=== PATIENT | female | born 1940 | race Caucasian/White ===

== ENCOUNTER → 2017-10-17 | Outpatient (CLI) | payer OTHER ==
[~2017-10-17] MED LIST: AMLO5; ASPI81CH PO; ATOR20 PO; ATOR80 PO; CLOP75 PO; ISOMON30 PO; LEVSOD100 PO; LEVSOD75 PO; LORA.5 PO; METO25ER PO; Nitrostat0.4 MG SL; Omeprazole20 M1 PO; PANT20 PO; PRAV20 PO; Prinivil10 MG PO; Vitamin D400 UNI1 PO
== END ==
LOC: LAB EV 11:10
DX: N39.0 Urinary tract infection, site not specified (principal)
CPT/HCPCS: 87077; 87086; 87186

== ENCOUNTER → 2017-12-01 | Outpatient (CLI) | payer OTHER | END | disposition home or self-care (01) | LOC: LAB 07:54 → LAB SHORT 07:54 | DX: L98.9 Disorder of the skin and subcutaneous tissue, unspecified (principal) | CPT/HCPCS: 88305 ==

== ENCOUNTER 2017-12-12 23:24 | Emergency (ER) | payer OTHER ==
[~2017-12-12] VITALS: Ht 162.6 cm; Wt 68.0 kg
[~2017-12-12 23:24] MED LIST changes: -AMLO5
[2018-04-21] MEDS ORDERED: AMLO5 (14:28)
== END 2017-12-13 01:18 | disposition home or self-care (01) ==
LOC: ER 23:24
DX: I10 Essential (primary) hypertension (principal); Z88.2 Allergy status to sulfonamides; Z88.8 Allergy status to other drugs, medicaments and biological substances; Z88.0 Allergy status to penicillin; Z79.899 Other long term (current) drug therapy; Z79.82 Long term (current) use of aspirin; Z87.891 Personal history of nicotine dependence
CPT/HCPCS: 93225; 93226; 99282

== ENCOUNTER → 2018-02-02 | Outpatient (CLI) | payer OTHER | END | disposition home or self-care (01) | LOC: PLD 07:42 → LAB SHORT 07:42 | DX: L30.9 Dermatitis, unspecified (principal) | CPT/HCPCS: 88305; 88313 ==

== ENCOUNTER → 2018-02-15 | Outpatient (CLI) | payer OTHER | END | disposition home or self-care (01) | LOC: LAB SHORT 07:34 → PLD 07:34 | DX: C44.729 Squamous cell carcinoma of skin of left lower limb, including hip (principal) | CPT/HCPCS: 88305 ==

== ENCOUNTER → 2018-02-28 | Outpatient (CLI) | payer OTHER | END | disposition home or self-care (01) | LOC: PLD 13:58 → LAB SHORT 13:58 | DX: C44.722 Squamous cell carcinoma of skin of right lower limb, including hip (principal) | CPT/HCPCS: 88305 ==

== ENCOUNTER → 2018-07-28 | Outpatient (CLI) | payer OTHER ==
[~2018-07-28] MED LIST changes: +AMLO5
[2018-08-01 13:11] LABS: HPV 16 Negative (Negative); HPV 18 Negative (Negative); HPV OTHER HR TYPES Negative (Negative)
== END ==
LOC: LAB SHORT 11:10 → LAB 11:10
PROVIDERS: Obstetrics & Gynecology Gynecology
DX: Z91.89 Other specified personal risk factors, not elsewhere classified (principal)
CPT/HCPCS: 87624; G0123

== ENCOUNTER 2019-03-09 21:20 | Emergency (ER) | payer OTHER ==
[~2019-03-09] VITALS: Ht 162.6 cm; Wt 72.6 kg
[~2019-03-09 21:20] MED LIST changes: -AMLO5; +AMLO5 PO; +ANTACID 1000-21 EACH PO; +FAMO10 PO; +RANO500T PO; +THERA1 EACH PO
[2019-03-09] MEDS ORDERED: Vibramycin100 MG PO (22:46)
== END 2019-03-09 23:05 | disposition home or self-care (01) ==
LOC: ER 21:20
DX: S01.551A Open bite of lip, initial encounter (principal); I10 Essential (primary) hypertension; Z88.0 Allergy status to penicillin; Z88.2 Allergy status to sulfonamides; Z88.6 Allergy status to analgesic agent; Z88.8 Allergy status to other drugs, medicaments and biological substances; Z79.82 Long term (current) use of aspirin; Z79.899 Other long term (current) drug therapy; Z87.891 Personal history of nicotine dependence; W54.0XXA Bitten by dog, initial encounter
CPT/HCPCS: 90471; 90714; 99283-25

== ENCOUNTER 2019-03-17 09:19 | Emergency (ER) | payer OTHER ==
[~2019-03-17] VITALS: Ht 162.6 cm; Wt 72.6 kg
[~2019-03-17 09:19] MED LIST changes: +Vibramycin100 MG PO
== END 2019-03-17 14:04 | disposition home or self-care (01) ==
LOC: ER 09:19
DX: M79.89 Other specified soft tissue disorders (principal); R79.1 Abnormal coagulation profile; Z88.2 Allergy status to sulfonamides; Z88.8 Allergy status to other drugs, medicaments and biological substances; Z88.5 Allergy status to narcotic agent; Z88.0 Allergy status to penicillin; Z79.899 Other long term (current) drug therapy; Z79.82 Long term (current) use of aspirin; I25.10 Atherosclerotic heart disease of native coronary artery without angina pectoris; E03.9 Hypothyroidism, unspecified; I10 Essential (primary) hypertension; Z87.891 Personal history of nicotine dependence
CPT/HCPCS: 36415; 70486; 73610; 85379; 99284-25

== ENCOUNTER 2019-05-30 00:50 | Emergency (ER) | payer OTHER ==
[~2019-05-30] VITALS: Ht 162.6 cm; Wt 70.8 kg
[2019-05-30 01:16] LABS: BASOPHILS ABSOLUTE AUTO 0.02 K/mm3 (0.00-0.23); BASOPHILS PERCENT AUTO 0 % (0-2); EOSINOPHILS ABSOLUTE AUTO 0.06 K/mm3 (0.00-0.68); EOSINOPHILS PERCENT AUTO 1 % (0-6); Hematocrit 34.2 % (33.0-51.0); Hemoglobin 11.5 g/dL (11.5-16.0); IMMATURE GRAN ABSOLUTE AUTO 0.04 K/mm3 (0.00-0.10); IMMATURE GRAN PERCENT AUTO 1 % (0-1); LYMPHOCYTES ABSOLUTE AUTO 0.38 K/mm3 (0.84-5.20); LYMPHOCYTES PERCENT AUTO 5 % (21-46); MONOCYTES PERCENT AUTO 6 % (4-13); Mean Corpuscular HGB Conc 33.6 g/dL (31.5-36.5); Mean Corpuscular Volume 89 fL (80-100); Mean Platelet Volume 9.3 fL (9.1-12.4); NEUTROPHILS PERCENT AUTO 88 % (41-73); Platelet Count 128 K/mm3 (150-400); RDW Standard Deviation 45.1 fL (35.1-46.3); Red Blood Cell Count 3.83 M/mm3 (3.80-5.20)
[2019-05-30 01:36] LABS: Alanine Aminotransfer (ALT/SGP 25 U/L (12-78); Albumin, Blood 4.1 g/dL (3.4-5.0); Albumin/Globulin Ratio 1.4 (0.8-1.8); Alk Phos 101 U/L (50-136); Anion Gap 10 mmol/L (6-16); Aspartate Aminotrans (AST/SGOT 18 U/L (12-37); Bilirubin, Total 0.9 mg/dL (0.1-1.0); Blood Urea Nitrogen 18 mg/dL (8-24); Bun/Creatinine Ratio 27.4 (12.0-20.0); CO2, Blood 24 mmol/L (21-32); Calcium, Blood 8.6 mg/dL (8.5-10.1); Chloride, Blood 103 mmol/L (98-108); Creatinine, Blood 0.66 mg/dL (0.40-1.00); Globulin, Blood 2.9 g/dL (2.2-4.0); Glomerular Filtration Rate >60 (60-); Glucose, Blood 156 mg/dL (70-99); Potassium, Blood 3.6 mmol/L (3.5-5.5); Sodium, Blood 137 mmol/L (136-145); Troponin I <0.015 ng/mL (0.000-0.040)
== END 2019-05-30 02:32 | disposition home or self-care (01) ==
LOC: ER 00:50
PROVIDERS: Emergency Medicine
DX: R11.2 Nausea with vomiting, unspecified (principal); E03.9 Hypothyroidism, unspecified; E78.5 Hyperlipidemia, unspecified; I10 Essential (primary) hypertension; I25.2 Old myocardial infarction; I25.10 Atherosclerotic heart disease of native coronary artery without angina pectoris; I73.00 Raynaud's syndrome without gangrene; Z87.891 Personal history of nicotine dependence; Z88.0 Allergy status to penicillin; Z88.2 Allergy status to sulfonamides; Z88.8 Allergy status to other drugs, medicaments and biological substances; Z88.5 Allergy status to narcotic agent; Z79.82 Long term (current) use of aspirin; Z79.899 Other long term (current) drug therapy
CPT/HCPCS: 80053; 84484; 85025; 93005; 93010; 99284-25; A9270-GY

== ENCOUNTER → 2019-07-31 | Outpatient (CLI) | payer OTHER ==
[2019-08-01 14:07] LABS: HPV 16 Negative (Negative); HPV 18 Negative (Negative); HPV OTHER HR TYPES Negative (Negative)
== END | disposition home or self-care (01) ==
LOC: LAB SHORT 10:15 → LAB 10:15
PROVIDERS: Obstetrics & Gynecology Gynecology
DX: Z91.89 Other specified personal risk factors, not elsewhere classified (principal)
CPT/HCPCS: 87624; G0123

== ENCOUNTER → 2019-08-21 | Outpatient (CLI) | payer OTHER | END | disposition home or self-care (01) | LOC: LAB EV 11:30 → LAB SHORT 11:30 | DX: N39.0 Urinary tract infection, site not specified (principal) | CPT/HCPCS: 87077; 87086; 87186 ==

== ENCOUNTER 2019-09-28 08:28 | Day surgery (SDC) | payer OTHER ==
[~2019-09-28] VITALS: Ht 162.6 cm; Wt 72.1 kg
[~2019-09-28 08:28] MED LIST changes: +Aspirin EC81 MG PO; +Daily Multiple1 EACH PO; +TUMS500 MG PO; +[UNRECOGNIZED DRUG - OTHER] PO
--- NOTE | 2019-09-28 10:16 | NUR ---
09/28/19 1016 Osiris Lindsey O2 WITH POM MASK AT 10L
== END 2019-09-28 10:50 | disposition home or self-care (01) ==
LOC: ORSCSDS 08:28
PROVIDERS: Internal Medicine Gastroenterology
PROC: 0DB58ZX Excision of Esophagus, Via Natural or Artificial Opening Endoscopic, Diagnostic (ICD-10-PCS; principal; 2019-09-28 09:45)
PROC: 0D757ZZ Dilation of Esophagus, Via Natural or Artificial Opening (ICD-10-PCS; principal; 2019-09-28 09:45)
PROC: 0DB68ZX Excision of Stomach, Via Natural or Artificial Opening Endoscopic, Diagnostic (ICD-10-PCS; principal; 2019-09-28 09:45)
DX: R13.10 Dysphagia, unspecified (principal); K29.70 Gastritis, unspecified, without bleeding; K21.9 Gastro-esophageal reflux disease without esophagitis; K44.9 Diaphragmatic hernia without obstruction or gangrene; K22.2 Esophageal obstruction; I10 Essential (primary) hypertension; G47.33 Obstructive sleep apnea (adult) (pediatric); E03.9 Hypothyroidism, unspecified; I25.10 Atherosclerotic heart disease of native coronary artery without angina pectoris; Z79.899 Other long term (current) drug therapy; Z79.82 Long term (current) use of aspirin
CPT/HCPCS: 88305; 88342; J2704; J7120

== ENCOUNTER → 2020-03-14 | Outpatient (CLI) | payer OTHER | END | disposition home or self-care (01) | LOC: LAB EV 12:13 → LAB SHORT 12:13 | DX: R30.9 Painful micturition, unspecified (principal) | CPT/HCPCS: 87077; 87086; 87186 ==

== ENCOUNTER → 2020-06-09 | Outpatient (CLI) | payer OTHER | END | disposition home or self-care (01) | LOC: LAB EV 12:14 → LAB SHORT 12:14 | DX: R30.9 Painful micturition, unspecified (principal) | CPT/HCPCS: 87086 ==

== ENCOUNTER → 2021-03-31 | Outpatient (CLI) | payer OTHER ==
[~2021-03-31] MED LIST changes: +Estrace Vagin42.5 GM PV; +NITR.4SL SL
== END | disposition home or self-care (01) ==
LOC: LAB SHORT 18:07
DX: N39.0 Urinary tract infection, site not specified (principal)
CPT/HCPCS: 87086

== ENCOUNTER 2021-04-20 06:27 | Day surgery (SDC) | payer OTHER ==
[~2021-04-20] VITALS: Ht 162.6 cm; Wt 72.0 kg
--- NOTE | 2021-04-20 11:34 | NUR ---
TR BAND FULLY DEFLATED, REMAINS ON WRIST WITH ARM BOARD. SITE SOFT, NON TENDER, BRUISING NOTED. NO ACTIVE BLEEDING. PT DENIES PAIN. AT BEDSIDE. DISCHARGE INSTRUCTIONS REVIEWED, VERBAL UNDERSTANDING STATED. PAPERWORK PROVIDED IN FOLDER. VSS.
--- NOTE | 2021-04-20 12:23 | NUR ---
PT PREVIOUSLY UP TO GET DRESSED WITH ASSISTANCE FROM . AFTER TR BAND REMOVAL HEMATOMA BEGAN TO FORM, 5 MINUTES MANUAL PRESSURE HELD WITH NO REDUCTION, TR BAND PLACED BACK ONTO WRIST WITH 15 CC AIR IN. VSS. CALL LIGHT IN REACH.
--- NOTE | 2021-04-20 12:56 | NUR ---
DR CHAVEZ IN TO ASSESS PATIENT. WILL START RELEASING AIR FROM BAND IN AN HOUR AND REASSESS R RADIAL SITE.
--- NOTE | 2021-04-20 14:38 | NUR ---
TR BAND REMOVED, RED CLOTH DOT DRESSING APPLIED, LIGHT PRESSURE DRESSING IN PLACE. ARM BOARD AND SLING ON RIGHT ARM. NO HEMATOMA NOTED, LOTS OF BRUISING NOTED TO RFA AND WRIST. PT EDUCATED ON HOW TO MANAGE RIGHT WRIST IF BLEEDING/OOZING, OR SWELLING SHOULD OCCUR. PT VERBALIZED UNDERSTANDING. IV REMOVED FROM LEFT ARM WITH CATHETER INTACT, PRESSURE DRESSING APPLIED. PAPERWORK PROVIDED IN FOLDER. ALL PERSONAL BELONGINGS SENT HOME WITH PT. TAKEN OUT TO PRIVATE VEHICLE VIA W/C. NADN AT TIME OF DISCHARGE.
== END 2021-04-20 16:00 | disposition home or self-care (01) ==
LOC: MHTC 06:27
DX: I25.110 Atherosclerotic heart disease of native coronary artery with unstable angina pectoris (principal); I11.0 Hypertensive heart disease with heart failure; I50.9 Heart failure, unspecified; E78.5 Hyperlipidemia, unspecified; E03.9 Hypothyroidism, unspecified; K21.9 Gastro-esophageal reflux disease without esophagitis; I25.2 Old myocardial infarction; M19.90 Unspecified osteoarthritis, unspecified site; I87.2 Venous insufficiency (chronic) (peripheral); I47.1 Supraventricular tachycardia; K22.2 Esophageal obstruction; I73.9 Peripheral vascular disease, unspecified; Z87.891 Personal history of nicotine dependence; Z95.5 Presence of coronary angioplasty implant and graft; Z88.6 Allergy status to analgesic agent; Z88.5 Allergy status to narcotic agent; Z88.0 Allergy status to penicillin; Z88.2 Allergy status to sulfonamides; Z88.8 Allergy status to other drugs, medicaments and biological substances; Z79.02 Long term (current) use of antithrombotics/antiplatelets; Z79.82 Long term (current) use of aspirin
CPT/HCPCS: 85347; 93454; 93571; 99152; 99153; A9270; C1769; C1887; C1894; J2060; J7030; J7050; Q9967

== ENCOUNTER → 2021-06-10 | Outpatient (CLI) | payer OTHER | LOC: LAB 12:15 → LAB SHORT 12:15 | DX: N39.0 Urinary tract infection, site not specified (principal) | CPT/HCPCS: 87086 ==

== ENCOUNTER → 2021-08-04 | Outpatient (CLI) | payer OTHER | LOC: LAB SHORT 07:39 → LAB 07:39 | DX: L98.9 Disorder of the skin and subcutaneous tissue, unspecified (principal); L30.8 Other specified dermatitis | CPT/HCPCS: 88305; 88312 ==

== ENCOUNTER 2021-11-20 09:48 | Emergency (ER) | payer OTHER ==
[~2021-11-20] VITALS: Ht 162.6 cm; Wt 70.3 kg
[2021-11-20 10:27] LABS: BASOPHILS ABSOLUTE AUTO 0.05 K/mm3 (0.00-0.23); BASOPHILS PERCENT AUTO 1 % (0-2); EOSINOPHILS ABSOLUTE AUTO 0.61 K/mm3 (0.00-0.68); EOSINOPHILS PERCENT AUTO 9 % (0-6); Hemoglobin 12.1 g/dL (11.5-16.0); IMMATURE GRAN ABSOLUTE AUTO 0.12 K/mm3 (0.00-0.10); IMMATURE GRAN PERCENT AUTO 2 % (0-1); LYMPHOCYTES ABSOLUTE AUTO 1.19 K/mm3 (0.84-5.20); LYMPHOCYTES PERCENT AUTO 18 % (21-46); MONOCYTES ABSOLUTE AUTO 0.69 K/mm3 (0.16-1.47); MONOCYTES PERCENT AUTO 10 % (4-13); Mean Corpuscular HGB 29.5 pg (26.0-34.0); Mean Corpuscular HGB Conc 32.7 g/dL (31.5-36.5); Mean Corpuscular Volume 90 fL (80-100); NEUTROPHILS ABSOLUTE AUTO 4.14 K/mm3 (1.96-9.15); NEUTROPHILS PERCENT AUTO 61 % (41-73); Platelet Count 166 K/mm3 (150-400); RDW Standard Deviation 46.4 fL (35.1-46.3)
[2021-11-20 10:57] LABS: Alanine Aminotransfer (ALT/SGP 23 U/L (12-78); Albumin, Blood 3.8 g/dL (3.4-5.0); Albumin/Globulin Ratio 1.1 (0.8-1.8); Alk Phos 109 U/L (50-136); Anion Gap 7 mmol/L (6-16); Aspartate Aminotrans (AST/SGOT 19 U/L (12-37); Bilirubin, Total 0.5 mg/dL (0.1-1.0); Blood Urea Nitrogen 15 mg/dL (8-24); CO2, Blood 26 mmol/L (21-32); Calcium, Blood 9.1 mg/dL (8.5-10.1); Chloride, Blood 106 mmol/L (98-108); Creatinine, Blood 0.68 mg/dL (0.40-1.00); Globulin, Blood 3.6 g/dL (2.2-4.0); Glomerular Filtration Rate >60 (60-); Glucose, Blood 118 mg/dL (70-99); Sodium, Blood 139 mmol/L (136-145); Total Protein, Blood 7.4 g/dL (6.4-8.2)
== END 2021-11-20 12:47 | disposition home or self-care (01) ==
LOC: ER 09:48
PROVIDERS: Physician Assistant
DX: G44.309 Post-traumatic headache, unspecified, not intractable (principal); F07.81 Postconcussional syndrome; R06.00 Dyspnea, unspecified; E03.9 Hypothyroidism, unspecified; E78.5 Hyperlipidemia, unspecified; I25.2 Old myocardial infarction; I10 Essential (primary) hypertension; Z79.899 Other long term (current) drug therapy; Z88.0 Allergy status to penicillin; Z88.2 Allergy status to sulfonamides; Z87.891 Personal history of nicotine dependence
CPT/HCPCS: 36415; 70450; 71046; 80053; 84484; 85025; 93005; 93010; 99284-25

== ENCOUNTER → 2022-09-06 | Outpatient (CLI) | payer OTHER | LOC: LAB 09:19 → LAB SHORT 09:19 | DX: N39.0 Urinary tract infection, site not specified (principal) | CPT/HCPCS: 87077; 87086; 87186 ==

== ENCOUNTER 2022-10-14 21:09 | Emergency (ER) | payer OTHER ==
[~2022-10-14] VITALS: Ht 162.6 cm; Wt 70.3 kg
[2022-10-14 22:07] LABS: BASOPHILS ABSOLUTE AUTO 0.07 K/mm3 (0.00-0.23); BASOPHILS PERCENT AUTO 1 % (0-2); EOSINOPHILS ABSOLUTE AUTO 0.19 K/mm3 (0.00-0.68); EOSINOPHILS PERCENT AUTO 2 % (0-6); Hematocrit 35.7 % (33.0-51.0); Hemoglobin 12.2 g/dL (11.5-16.0); IMMATURE GRAN ABSOLUTE AUTO 0.12 K/mm3 (0.00-0.10); IMMATURE GRAN PERCENT AUTO 2 % (0-1); LYMPHOCYTES ABSOLUTE AUTO 1.43 K/mm3 (0.84-5.20); LYMPHOCYTES PERCENT AUTO 18 % (21-46); MONOCYTES ABSOLUTE AUTO 0.68 K/mm3 (0.16-1.47); MONOCYTES PERCENT AUTO 9 % (4-13); Mean Corpuscular HGB 30.5 pg (26.0-34.0); Mean Corpuscular HGB Conc 34.2 g/dL (31.5-36.5); Mean Corpuscular Volume 89 fL (80-100); Mean Platelet Volume 9.5 fL (9.1-12.4); NEUTROPHILS ABSOLUTE AUTO 5.49 K/mm3 (1.96-9.15); NEUTROPHILS PERCENT AUTO 69 % (41-73); Platelet Count 177 K/mm3 (150-400); RDW Coefficient Variation 14.1 % (11.7-14.2); RDW Standard Deviation 45.4 fL (35.1-46.3); White Blood Cell Count 7.98 K/mm3 (4.00-11.30)
[2022-10-14 22:28] LABS: Albumin, Blood 4.2 g/dL (3.4-5.0); Albumin/Globulin Ratio 1.3 (0.8-1.8); Bilirubin, Total 0.4 mg/dL (0.1-1.0); Bun/Creatinine Ratio 28.2 (12.0-20.0); Calcium, Blood 9.4 mg/dL (8.5-10.1); Creatinine, Blood 0.75 mg/dL (0.40-1.00); Globulin, Blood 3.3 g/dL (2.2-4.0); Potassium, Blood 3.9 mmol/L (3.5-5.5); Total Protein, Blood 7.5 g/dL (6.4-8.2)
== END 2022-10-15 01:20 | disposition home or self-care (01) ==
LOC: ER 21:09
PROVIDERS: Physician Assistant
DX: I10 Essential (primary) hypertension (principal); I25.2 Old myocardial infarction; E03.9 Hypothyroidism, unspecified; I25.10 Atherosclerotic heart disease of native coronary artery without angina pectoris; Z79.890 Hormone replacement therapy; Z79.899 Other long term (current) drug therapy; Z79.82 Long term (current) use of aspirin; Z88.2 Allergy status to sulfonamides; Z88.6 Allergy status to analgesic agent; Z88.5 Allergy status to narcotic agent; Z88.0 Allergy status to penicillin; Z88.8 Allergy status to other drugs, medicaments and biological substances; Z87.891 Personal history of nicotine dependence
CPT/HCPCS: 36415; 71046; 80053; 84484; 85025; 93005; 93010

== ENCOUNTER 2023-02-17 06:36 | Day surgery (SDC) | payer OTHER ==
[~2023-02-17] VITALS: Ht 162.6 cm; Wt 66.6 kg
[2023-02-17 08:58] VITALS: BP 147/79
== END 2023-02-17 09:08 | disposition home or self-care (01) ==
LOC: ORSCSDS 06:36
PROVIDERS: Internal Medicine Gastroenterology
PROC: 0D758ZZ Dilation of Esophagus, Via Natural or Artificial Opening Endoscopic (ICD-10-PCS; principal; 2023-02-17 08:00)
PROC: 0DB78ZX Excision of Stomach, Pylorus, Via Natural or Artificial Opening Endoscopic, Diagnostic (ICD-10-PCS; principal; 2023-02-17 08:00)
PROC: 0DJD8ZZ Inspection of Lower Intestinal Tract, Via Natural or Artificial Opening Endoscopic (ICD-10-PCS; principal; 2023-02-17 08:00)
DX: R13.14 Dysphagia, pharyngoesophageal phase (principal); Z86.010 Personal history of colon polyps; K29.70 Gastritis, unspecified, without bleeding; K22.2 Esophageal obstruction; K44.9 Diaphragmatic hernia without obstruction or gangrene; Z87.891 Personal history of nicotine dependence; I10 Essential (primary) hypertension; E78.5 Hyperlipidemia, unspecified; Z79.899 Other long term (current) drug therapy; Z79.82 Long term (current) use of aspirin; R93.5 Abnormal findings on diagnostic imaging of other abdominal regions, including retroperitoneum
CPT/HCPCS: 88305; 88342; C1726; J2704; J7120

== ENCOUNTER 2023-06-28 09:50 | Emergency (ER) | payer OTHER ==
[~2023-06-28] VITALS: Ht 165.1 cm; Wt 68.0 kg
[2023-06-28 10:16] LABS: BASOPHILS ABSOLUTE AUTO 0.05 K/mm3 (0.00-0.23); BASOPHILS PERCENT AUTO 1 % (0-2); EOSINOPHILS ABSOLUTE AUTO 0.15 K/mm3 (0.00-0.68); EOSINOPHILS PERCENT AUTO 2 % (0-6); Hematocrit 37.1 % (33.0-51.0); Hemoglobin 12.3 g/dL (11.5-16.0); IMMATURE GRAN PERCENT AUTO 1 % (0-1); LYMPHOCYTES ABSOLUTE AUTO 1.33 K/mm3 (0.84-5.20); LYMPHOCYTES PERCENT AUTO 13 % (21-46); MONOCYTES ABSOLUTE AUTO 0.91 K/mm3 (0.16-1.47); MONOCYTES PERCENT AUTO 9 % (4-13); Mean Corpuscular HGB 29.6 pg (26.0-34.0); Mean Corpuscular HGB Conc 33.2 g/dL (31.5-36.5); Mean Corpuscular Volume 89 fL (80-100); Mean Platelet Volume 8.8 fL (9.1-12.4); NEUTROPHILS ABSOLUTE AUTO 7.63 K/mm3 (1.96-9.15); NEUTROPHILS PERCENT AUTO 75 % (41-73); Platelet Count 153 K/mm3 (150-400); RDW Coefficient Variation 14.5 % (11.7-14.2); Red Blood Cell Count 4.15 M/mm3 (3.80-5.20); White Blood Cell Count 10.17 K/mm3 (4.00-11.30)
[2023-06-28 10:45] LABS: Albumin, Blood 3.9 g/dL (3.4-5.0); Albumin/Globulin Ratio 1.2 (0.8-1.8); Bilirubin, Total 0.8 mg/dL (0.1-1.0); Bun/Creatinine Ratio 14.9 (12.0-20.0); Calcium, Blood 9.2 mg/dL (8.5-10.1); Creatinine, Blood 0.87 mg/dL (0.40-1.00); Globulin, Blood 3.3 g/dL (2.2-4.0); Potassium, Blood 3.8 mmol/L (3.5-5.5); Total Protein, Blood 7.2 g/dL (6.4-8.2)
[2023-06-28 13:14] LABS: Source, Urine Clean Catch
[2023-06-28 13:17] LABS: Appearance, Urine Clear (Clear); Bilirubin, Urine Neg (Neg); Blood, Urine 3+ (Neg); Color, Urine Yellow (P-Yellow); Glucose Qualitative, Urine Neg (Neg); Ketones, Urine Neg (Neg); Leukocyte Esterase, Urine 3+ (Neg); Nitrite, Urine Neg (Neg); Protein, Urine Neg (Neg); Specific Gravity, Urine 1.015 (1.003-1.022); Urobilinogen, Urine NORM (Normal)
[2023-06-28 13:29] LABS: Red Blood Cells, Urine 0-2 /hpf (0-2)
[2023-06-28 13:30] LABS: Bacteria Many /hpf; Mucus Light (0-Heavy); Squamous Epithelial Cells Few /hpf (Few)
[2023-06-28 13:31] LABS: Hyaline Casts 0-2 /lpf (0-2)
[2023-06-28 14:45] VITALS: BP 153/71
[2023-06-28] MEDS ORDERED: CEFU500T30 PO (14:46)
== END 2023-06-28 15:01 | disposition home or self-care (01) ==
LOC: ER 09:50
PROVIDERS: Student in an Organized Health Care Education/Training Program
DX: N12 Tubulo-interstitial nephritis, not specified as acute or chronic (principal); I25.10 Atherosclerotic heart disease of native coronary artery without angina pectoris; I10 Essential (primary) hypertension; I25.2 Old myocardial infarction; E03.9 Hypothyroidism, unspecified; Z87.891 Personal history of nicotine dependence; Z88.2 Allergy status to sulfonamides; Z88.5 Allergy status to narcotic agent; Z88.0 Allergy status to penicillin; Z88.6 Allergy status to analgesic agent; Z88.8 Allergy status to other drugs, medicaments and biological substances; Z79.899 Other long term (current) drug therapy
CPT/HCPCS: 80053; 81001; 83690; 85025; 87086; 99284; A9270

== ENCOUNTER → 2023-08-03 | Outpatient (CLI) | payer OTHER ==
[~2023-08-03] MED LIST changes: +CEFU500T30 PO
== END | disposition home or self-care (01) ==
LOC: LAB 17:07 → LAB SHORT 17:07
DX: N39.0 Urinary tract infection, site not specified (principal)
CPT/HCPCS: 87086

== ENCOUNTER → 2023-09-23 | Outpatient (CLI) | payer OTHER | END | disposition home or self-care (01) | LOC: LAB SHORT 09:53 → LAB 09:53 | DX: N39.0 Urinary tract infection, site not specified (principal) | CPT/HCPCS: 87086 ==

== ENCOUNTER 2023-11-03 05:24 | Inpatient (IN) | payer OTHER ==
[~2023-11-03] VITALS: Ht 162.6 cm; Wt 65.9 kg
[2023-11-03] MEDS ORDERED: Ondansetron HCl 2 MG / ML 2ML Vial IV PRN ×2 (05:35→11:10)
[2023-11-03 05:44] LABS: BASOPHILS ABSOLUTE AUTO 0.04 K/mm3 (0.00-0.23); BASOPHILS PERCENT AUTO 1 % (0-2); EOSINOPHILS PERCENT AUTO 0 % (0-6); Hematocrit 33.6 % (33.0-51.0); Hemoglobin 11.8 g/dL (11.5-16.0); IMMATURE GRAN ABSOLUTE AUTO 0.16 K/mm3 (0.00-0.10); IMMATURE GRAN PERCENT AUTO 2 % (0-1); LYMPHOCYTES ABSOLUTE AUTO 0.24 K/mm3 (0.84-5.20); LYMPHOCYTES PERCENT AUTO 4 % (21-46); MONOCYTES PERCENT AUTO 6 % (4-13); Mean Corpuscular HGB 29.8 pg (26.0-34.0); Mean Corpuscular HGB Conc 35.1 g/dL (31.5-36.5); Mean Corpuscular Volume 85 fL (80-100); Mean Platelet Volume 8.8 fL (9.1-12.4); NEUTROPHILS PERCENT AUTO 87 % (41-73); Platelet Count 110 K/mm3 (150-400); RDW Coefficient Variation 13.6 % (11.7-14.2); RDW Standard Deviation 42.2 fL (35.1-46.3); Red Blood Cell Count 3.96 M/mm3 (3.80-5.20); White Blood Cell Count 6.54 K/mm3 (4.00-11.30)
[2023-11-03 06:11] LABS: Albumin, Blood 3.6 g/dL (3.4-5.0); Albumin/Globulin Ratio 1.1 (0.8-1.8); Bun/Creatinine Ratio 20.6 (12.0-20.0); Calcium, Blood 8.2 mg/dL (8.5-10.1); Creatinine, Blood 0.53 mg/dL (0.40-1.00); Globulin, Blood 3.4 g/dL (2.2-4.0); Potassium, Blood 3.3 mmol/L (3.5-5.5)
[2023-11-03] MEDS ORDERED: NS 1,000 ML IV SCH ×2 (06:20→11:00)
[2023-11-03] MEDS ORDERED: Metoclopramide HCl 5MG / ML 2ML Vial IV ONE (07:40)
[2023-11-03 07:49] LABS: Influenza A, PCR NEGATIVE (NEGATIVE); Influenza B, PCR NEGATIVE (NEGATIVE); Resp Syncytial Virus, PCR NEGATIVE (NEGATIVE); SARS-Cov-2 (COVID-19) PCR, MMC NEGATIVE (NEGATIVE)
[2023-11-03] MEDS ORDERED: Potassium Chloride 20 MEQ/15 ML UDC PO ONE (09:45)
[2023-11-03] MEDS ORDERED: Labetalol HCL 5 MG/ML 4ML Injection (Single Dose) IV PRN (11:00)
[2023-11-03] MEDS ORDERED: Ibuprofen 400 MG Tab PO PRN (11:05)
[2023-11-03] MEDS ORDERED: FLU VACC QS2023-24(6MOS UP)/PF 60 MCG/0.5 ML SYRINGE IM SCH (11:05)
[2023-11-03] MEDS ORDERED: NS KCl 20mEq 1,000 ML IV SCH (11:05)
[2023-11-03] MEDS ORDERED: LORazepam 0.5 MG Tab PO PRN (11:05)
[2023-11-03 15:32] VITALS: BP 186/99
[2023-11-03] MEDS ORDERED: LISI5 PO (15:52)
--- NOTE | 2023-11-03 16:51 | NUR ---
ADMIT FROM ER, TO FLOOR AT 1530, PLEAANT AND COOPERATIVE, MAKES NEEDS KNOWN, ALERT AND OREINTED TO ALL, PATIENT REPORTS FEELING VERY WEAK, PATIENT WAS UNABLE TO KEEP LIQUID POTASSIUM DOWN, EMESIS CLEAR LIQUID, MEDICATED WITH ZOFRAN, PATIENT REPORTS RELIEF. ONE PERSON STAND BY ASSIST TO THE BSC, VSS, TELE 70 NSR, DENIES CP OR SOB, MONITOR THROUGH OUT THE NIGHT FOR MORE SYNCOPAL EPISODES OR CARDIAC CHANGES, LIMITED CODE STATUS NO CPR OR VENTILATOR, CALL LIGHT WITH IN REACH, WILL RELAY TO PM RN
[2023-11-03 18:34] VITALS: BP 134/70
[2023-11-03 19:49] VITALS: BP 135/67
[2023-11-03] MEDS ORDERED: Sennosides 8.6 MG Tab PO SCH (21:00)
[2023-11-04 03:30] VITALS: BP 134/73
[2023-11-04 05:37] LABS: BASOPHILS ABSOLUTE AUTO 0.04 K/mm3 (0.00-0.23); BASOPHILS PERCENT AUTO 1 % (0-2); EOSINOPHILS ABSOLUTE AUTO 0.05 K/mm3 (0.00-0.68); EOSINOPHILS PERCENT AUTO 1 % (0-6); Hematocrit 31.6 % (33.0-51.0); Hemoglobin 11.2 g/dL (11.5-16.0); IMMATURE GRAN ABSOLUTE AUTO 0.18 K/mm3 (0.00-0.10); IMMATURE GRAN PERCENT AUTO 3 % (0-1); LYMPHOCYTES ABSOLUTE AUTO 0.24 K/mm3 (0.84-5.20); LYMPHOCYTES PERCENT AUTO 4 % (21-46); MONOCYTES ABSOLUTE AUTO 0.42 K/mm3 (0.16-1.47); MONOCYTES PERCENT AUTO 8 % (4-13); Mean Corpuscular HGB 30.4 pg (26.0-34.0); Mean Corpuscular HGB Conc 35.4 g/dL (31.5-36.5); Mean Corpuscular Volume 86 fL (80-100); Mean Platelet Volume 10.3 fL (9.1-12.4); NEUTROPHILS ABSOLUTE AUTO 4.55 K/mm3 (1.96-9.15); NEUTROPHILS PERCENT AUTO 83 % (41-73); Platelet Count 75 K/mm3 (150-400); RDW Coefficient Variation 13.8 % (11.7-14.2); RDW Standard Deviation 43.2 fL (35.1-46.3); Red Blood Cell Count 3.69 M/mm3 (3.80-5.20); White Blood Cell Count 5.48 K/mm3 (4.00-11.30)
[2023-11-04] MEDS ORDERED: Levothyroxine Sodium 0.075 MG Tab PO SCH (06:00)
[2023-11-04 06:12] LABS: Albumin, Blood 3.1 g/dL (3.4-5.0); Albumin/Globulin Ratio 1.1 (0.8-1.8); Calcium, Blood 8.1 mg/dL (8.5-10.1); Creatinine, Blood 0.56 mg/dL (0.40-1.00); Globulin, Blood 2.9 g/dL (2.2-4.0); Potassium, Blood 3.6 mmol/L (3.5-5.5)
--- NOTE | 2023-11-04 06:39 | NUR ---
SHIFT SUMMARY A/OX4. NO EPISODES OF SYNCOPE OR DIZZINESS OVERNIHGT. TELEMETRY WAS NSR FOR MAJORITY OF SHIFT BUT SHE DID HAVE AN EPISODE OF BRADYCARDIA LOWEST BEING 34, AND A COUPLE OF DROPPED QRS'S. TELE READ 2ND DEGREE AV BLOCK TYPE ll. SHE CONVERTED BACK TO NSR IN THE 'S. DR. KIRKLAND CALLED AND NOTIFIED, PATIENT WAS ASYMPTOMATIC DURING THIS EPISODE, PATIENT REPORTED NO CHANGE ON HER PART. PATIENT ABLE TO MAKE NEEDS KNOWN, CALL LIGHT IN REACH.
[2023-11-04 07:07] VITALS: BP 142/78
[2023-11-04] MEDS ORDERED: Clopidogrel Bisulfate 75 MG Tab PO SCH (09:00)
[2023-11-04] MEDS ORDERED: Lisinopril 5 MG Tab PO SCH (09:00)
[2023-11-04] MEDS ORDERED: Enoxaparin 40 MG/0.4 ML SYR SC SCH (09:00)
[2023-11-04 15:30] VITALS: BP 129/70
--- NOTE | 2023-11-04 18:10 | NUR ---
SHIFT SUMMARY: PT A&O X4. PLEASANT AND COOPERATIVE WITH CARE. PT WAS HOPING TO GO HOME TODAY BUT DR. VALERO RECOMMENDED PACEMAKER PLACEMENT. CONSULT CALLED BY HOSPITALIST TO DR. BOYD. DR. JOSHUA TO PLACE PACEMAKER ON TUESDAY. PT AGREES TO PLAN OF CARE. PT C/O NAUSEA ONCE THIS SHIFT. MEDICATED PER EMAR. MINIMAL APPETITE. PT STATES SHE IS DOING WELL, SHE IS JUST "BORED." CHAR CONVEYOR TENDER C/O WEAKNESS, DIZZINESS, OR PAIN. CALL LIGHT IN REACH. BED IN LOWEST POSITION.
[2023-11-04 19:59] VITALS: BP 148/81
--- NOTE | 2023-11-04 20:30 | NUR ---
TEMP 101.2 ORAL. ICE BAGS TO BILAT AXILLA. COOL RAG TO FOREHEAD. PO FLUIDS ADMIN. CALL LIGHT IN REACH - WILL RECHECK TEMP LATER
--- NOTE | 2023-11-04 23:08 | NUR ---
TEMP 101.9, PO MOTRIN ADMIN PER MD ORDERS. WILL RE CHECK LATER - CALL LIGHT IN REACH
[2023-11-05 03:14] VITALS: BP 122/68
--- NOTE | 2023-11-05 05:26 | NUR ---
COLOR BUFFER SUMMARY TEMP ELEVATED AT SHIFT COMMENCE. 101.1, COOL WASH CLOTH TO HEAD AND ICE TO BILAT AXILLA, TEMP INCREASED TO 101.9. ADVIL/MOTRIN ADMINISTERD. MED EFFECTIVE T 98.6. OTHERWISE HAS BEEN RESETING QUIETLY WITH FEW INTERRUPTIONS. CALL LIGHT IN REACH. RAILS UP X 2 FOR SAEFTY. WILL CONTINUE TO MONITOR. PACE MAKER SCHEDLED FOR TUESDAY. MED [facility] .
[2023-11-05 08:05] VITALS: BP 102/67
[2023-11-05 08:12] LABS: Bun/Creatinine Ratio 29.4 (12.0-20.0); Creatinine, Blood 0.65 mg/dL (0.40-1.00); Potassium, Blood 2.8 mmol/L (3.5-5.5)
[2023-11-05] MEDS ORDERED: Potassium Chloride 40 MEQ in NS 250 ML IV ONE (10:40)
[2023-11-05] MEDS ORDERED: NS 250 ML IV PRN (12:55)
[2023-11-05 15:34] VITALS: BP 107/89
--- NOTE | 2023-11-05 17:28 | NUR ---
SHIFT SUMMARY: PT A&O X4. PLEASANT AND COOPERATIVE WITH CARE. NO ACUTE EVENTS OCCURED WITH PT THIS SHIFT. PT HAD POTASSIUM LEVEL OF 2.8. REPORTED TO DR. MORELAND. ONE TIME 40MEQ IV BAG INFUSION INFUSED THIS SHIFT WITHOUT COMPLAINTS. ORDERS FOR URINE SODIUM AND OSMOLALITY IN PLACE. WILL TRY TO OBTAIN LAB PRIOR TO SHIFT CHANGE. PLAN FOR PACEMAKER PLACEMENT Tuesday11/07/2023. PT STATES SHE IS FEELING BETTER THIS SHIFT AND ABLE TO EAT MORE WITHOUT NAUSEA/VOMITING. CALL LIGHT IN REACH. BED IN LOWEST POSITION. WILL REPORT TO ONCOMING RN.
[2023-11-05 19:17] VITALS: BP 138/69
[2023-11-05 23:24] LABS: Source, Urine Clean Catch
[2023-11-05 23:32] LABS: Bilirubin, Urine Neg (Neg); Blood, Urine 4+ (Neg); Glucose Qualitative, Urine Neg (Neg); Ketones, Urine 3+ (Neg); Leukocyte Esterase, Urine 3+ (Neg); Nitrite, Urine Neg (Neg); Protein, Urine 3+ (Neg); Urobilinogen, Urine NORM (Normal)
[2023-11-05 23:45] LABS: Appearance, Urine Hazy (Clear); Color, Urine Yellow (P-Yellow)
[2023-11-05 23:47] LABS: Bacteria Many /hpf; Granular Casts 0-2 /lpf (0); Red Blood Cells, Urine 0-2 /hpf (0-2); Squamous Epithelial Cells Mod /hpf (Few); White Blood Cells, Urine 50-100 /hpf (0-5)
--- NOTE | 2023-11-06 04:43 | NUR ---
CLIP RIVETER SUMMARY TEMP ELEVATED NEAR SHIFT COMMENCE, T 102.6. IBUPROFEN/MOTRIN ADMINISTERED ORDERED, MED EFFECTIVE TEMP TRENDED DOWN TO 98 DEGREES. ALERT AND ORIENTED. COOPERATIVE WITH CARE. LETHARGIC, BUT LESS SO THAN NOTED 24 HR AGO. ABLE TO REPOSITION SELF IN BED, UP WITH ASSIST NEEDED. TELE MONITORED, NO REPORTED CONCERNS. HAS BEEN RESTING QUIETLY WITH FEW INTERRUPTIONS. CALL LIGHT IN REACH. WILL CONTINUE TO MONITOR
[2023-11-06 05:56] VITALS: BP 125/72
[2023-11-06 06:53] LABS: Bun/Creatinine Ratio 37.2 (12.0-20.0); Calcium, Blood 8.4 mg/dL (8.5-10.1); Creatinine, Blood 0.7 mg/dL (0.40-1.00); Magnesium, Blood 2.2 mg/dL (1.6-2.4); Potassium, Blood 3.3 mmol/L (3.5-5.5)
[2023-11-06 07:32] VITALS: BP 98/62
[2023-11-06] MEDS ORDERED: NS KCL 40 mEq 1,000 ML IV SCH (08:20)
[2023-11-06] MEDS ORDERED: Acetaminophen 325 MG TABLET PO PRN (12:00)
[2023-11-06 15:36] VITALS: BP 142/65
--- NOTE | 2023-11-06 19:02 | NUR ---
DAY SHIFT SUMMARY: A&Ox4. CALLS APPROPRIATELY AND ABLE TO ADVOCATE OWN NEEDS. REFUSED ANTICOAGULANT THERAPIES DUE TO SURGERY TOMORROW. MORNING LISINOPRIL HELD DUE TO SBP <100. DSS REFUSED DUE TO LACK OF CONSTIPATION. DR VALERO TO BEDSIDE TODAY; OK FOR APAP IF FEVER TONIGHT AND CAN TAKE OFF OF ALLERGY LIST. ORDERED SCD's. SHE DOES HAVE WET COUGH TODAY AND FINE CRAKLES IN LLL; NO FLUID RETENTION OR THIRD SPACING. SHE WILL BE NPO AFTER MIDNIGHT TONIGHT. TELE SINUS, PAC 84. REPORT TO ONCOMING RN.
[2023-11-06 19:28] VITALS: BP 137/79
--- NOTE | 2023-11-06 22:55 | NUR ---
TEMP 102.3 ORAL, TYLENOL ADMINISTERED PER MD ORDER, EFFECTIVE, ORAL TEMP 97.9. WILL CONT TO MONITOR
[2023-11-07 02:23] VITALS: BP 115/54
[2023-11-07 06:18] LABS: Bun/Creatinine Ratio 31.7 (12.0-20.0); Calcium, Blood 8.2 mg/dL (8.5-10.1); Creatinine, Blood 0.6 mg/dL (0.40-1.00); Potassium, Blood 3.6 mmol/L (3.5-5.5)
--- NOTE | 2023-11-07 06:20 | NUR ---
DATE PULLER SUMMARY TEMP ELEVATAED EARLIER IN THE SHIFT, TYLENOL WAS ADMINISTERED AND TEMP TRENDED DOWN TO WNL, OTHERWISE VSS. NO REPORTS OF SYNCOPE THIS SHIFT. HAS BEEN RESTING QUIETLY WITH FEW INTRRUPTIONS NOTED. SCHEDULED FOR POSSIBLE PACEMAKER PLACEMENT TODAY. CALL [facility] IN REACH. RAILS UP X 2 FOR SAFETY. WILL CONTINUE TO MONITOR.
[2023-11-07] MEDS ORDERED: NS 0 ML IV ONE ×3 (06:29→07:06)
[2023-11-07] MEDS ORDERED: Heparin Sodium 1000 Units/ML 10ML MDV ONE (06:29)
[2023-11-07] MEDS ORDERED: Vancomycin HCl 1000 MG ADDvantage ONE ×2 (06:29→07:07)
--- NOTE | 2023-11-07 06:50 | NUR ---
FRONT DESK MANAGER CALLED, WILL COME UP TO TRANSPORT PT FOR PACEMAKER PLACEMENT. THEY WILL TRANSPORT PT BY WHEELCHAIR.
[2023-11-07] MEDS ORDERED: Midazolam HCl 1MG / ML 2ML Vial ONE (07:06)
--- NOTE | 2023-11-07 07:10 | NUR ---
HEALTH NAVIGATOR UP TO FLOOR, VOICED CONCERN FOR PT DUE TO ELEVATED TEMPS AND LOW NA+ LEVEL. VOICED WILL HOLD PACEMAKER PLACEMENT AT THIS TIME AND TREAT SAID ANAMOLIES. AM RN AWARE OF SAID INFO.
--- NOTE | 2023-11-07 07:13 | NUR ---
STEP DOWN NURSE CALLED, WILL BRING PT BACK TO FLOOR FOR TREATMENT, PACEMAKER ON HOLD FOR NOW.
[2023-11-07 07:29] LABS: Hematocrit 32.6 % (33.0-51.0); Hemoglobin 11.1 g/dL (11.5-16.0); Mean Corpuscular HGB 29.7 pg (26.0-34.0); Mean Corpuscular Volume 87 fL (80-100); Mean Platelet Volume 10.7 fL (9.1-12.4); Platelet Count 69 K/mm3 (150-400); RDW Coefficient Variation 14.3 % (11.7-14.2); RDW Standard Deviation 45.1 fL (35.1-46.3); Red Blood Cell Count 3.74 M/mm3 (3.80-5.20); White Blood Cell Count 5.99 K/mm3 (4.00-11.30)
[2023-11-07 07:33] VITALS: BP 104/61
[2023-11-07 07:51] LABS: BAND PERCENT MAN 6 % (0-8); BASOPHILS PERCENT MAN 0 % (0-2); EOSINOPHILS ABSOLUTE MAN 0.35 K/mm3 (0.00-0.68); EOSINOPHILS PERCENT MAN 6 % (0-6); LYMPHOCYTES ABSOLUTE MAN 0.17 K/mm3 (0.84-5.20); LYMPHOCYTES PERCENT MAN 3 % (21-46); MONOCYTES ABSOLUTE MAN 0.23 K/mm3 (0.16-1.47); MONOCYTES PERCENT MAN 4 % (4-13); NEUTROPHILS ABSOLUTE MAN 5.21 K/mm3 (1.96-9.15); SEG NEUTROPHILS PERCENT MAN 81 % (41-73); TOTAL CELLS COUNTED 100
[2023-11-07] MEDS ORDERED: CefTRIAXone Sodium 1,000 MG in NS 50 ML IV SCH (08:00)
[2023-11-07] MEDS ORDERED: Potassium Chloride 20 MEQ TabCR PO ONE (08:00)
[2023-11-07 09:12] LABS: Adenovirus Not Detected (NOT DETECT); Bordetella pertussis Not Detected (NOT DETECT); Chlamydophila pneumoniae Not Detected (NOT DETECT); Coronavirus 229E Not Detected (NOT DETECT); Coronavirus HKU1 Not Detected (NOT DETECT); Coronavirus NL63 Not Detected (NOT DETECT); Coronavirus OC43 Not Detected (NOT DETECT); Human Metapneumovirus Not Detected (NOT DETECT); Human Rhinovirus/Enterovirus Not Detected (NOT DETECT); Influenza A/2009-H1 Not Detected (NOT DETECT); Influenza A/H1 Not Detected (NOT DETECT); Influenza A/H3 Not Detected (NOT DETECT); Influenza B Not Detected (NOT DETECT); Mycoplasma pneumoniae Not Detected (NOT DETECT); Parainfluenza Virus 1 Not Detected (NOT DETECT); Parainfluenza Virus 2 Not Detected (NOT DETECT); Parainfluenza Virus 3 Not Detected (NOT DETECT); Parainfluenza Virus 4 Not Detected (NOT DETECT); Respiratory Syncytial Virus Not Detected (NOT DETECT); SARS-Cov-2 (COVID-19), BioFire Not Detected (NOT DETECT)
[2023-11-07 15:17] VITALS: BP 96/81
[2023-11-07 19:31] VITALS: BP 120/65
--- NOTE | 2023-11-07 20:09 | NUR ---
SHIFT SUMMARY PATIENT RECEIVED BACK TO UNIT THIS AM AND URINE AND BLOOD CUTURES COLLECTED. IV ROCEPHIN GIVEN TO PATIENT. NO OTHER ACUTE EVENTS DURING SHIFT. PATIENT ABLE TO MAKE NEEDS KNOWN. BED IN LOW POSITON, CALL LIGHT IN REACH.
[2023-11-08 04:33] VITALS: BP 127/70
--- NOTE | 2023-11-08 05:06 | NUR ---
SHIFT SUMMARY 83 YR F ADMITTED ON 11/03/23. LIMITED CODE: DEFIB AND MEDS ONLY. NO ACUTE CHANGES THIS SHIFT. PT HAS SLEPT FOR MOST OF THIS SHIFT. SHE CALLS APPROPRIATELY FOR ASSISTANCE AND IS A&O X 4. NO C/O PAIN, DISCOMFORT, DIZZINESS, OR LIGHTHEADEDNESS THIS SHIFT.
[2023-11-08 06:05] LABS: BASOPHILS ABSOLUTE AUTO 0.03 K/mm3 (0.00-0.23); BASOPHILS PERCENT AUTO 1 % (0-2); EOSINOPHILS PERCENT AUTO 8 % (0-6); Hematocrit 31.1 % (33.0-51.0); Hemoglobin 10.8 g/dL (11.5-16.0); IMMATURE GRAN ABSOLUTE AUTO 0.11 K/mm3 (0.00-0.10); IMMATURE GRAN PERCENT AUTO 2 % (0-1); LYMPHOCYTES ABSOLUTE AUTO 0.59 K/mm3 (0.84-5.20); LYMPHOCYTES PERCENT AUTO 10 % (21-46); MONOCYTES ABSOLUTE AUTO 0.34 K/mm3 (0.16-1.47); MONOCYTES PERCENT AUTO 6 % (4-13); Mean Corpuscular HGB 29.7 pg (26.0-34.0); Mean Corpuscular HGB Conc 34.7 g/dL (31.5-36.5); Mean Corpuscular Volume 85 fL (80-100); Mean Platelet Volume 10.8 fL (9.1-12.4); NEUTROPHILS ABSOLUTE AUTO 4.37 K/mm3 (1.96-9.15); NEUTROPHILS PERCENT AUTO 74 % (41-73); Platelet Count 84 K/mm3 (150-400); RDW Coefficient Variation 14.4 % (11.7-14.2); RDW Standard Deviation 45.1 fL (35.1-46.3); Red Blood Cell Count 3.64 M/mm3 (3.80-5.20); White Blood Cell Count 5.94 K/mm3 (4.00-11.30)
[2023-11-08 06:21] LABS: Calcium, Blood 7.8 mg/dL (8.5-10.1); Creatinine, Blood 0.57 mg/dL (0.40-1.00); Potassium, Blood 3.7 mmol/L (3.5-5.5)
[2023-11-08 08:03] VITALS: BP 104/57
[2023-11-08 15:21] VITALS: BP 113/64
[2023-11-08] MEDS ORDERED: Sodium Chloride 1 GM TAB PO SCH (16:00)
--- NOTE | 2023-11-08 18:17 | NUR ---
SHIFT SUMMARY: PT A&O X4. OCCASIONALLY FORGETFUL. PLEASANT AND COOPERATIVE WITH ALL CARE. NO FEVER SO FAR THIS SHIFT. TEMP MAINTAINING 98.4. RECEIVED CALL FOR PT TO HOPEFULLY RECEIVE PACEMAKER PLACEMENT TOMORROW MORNING IF TEMP AND LABS REMAIN NORMAL. CONCERNS OF PT REDUCED CALCIUM LEVEL. NO C/O PAIN OR N/V. 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 SPOKE WITH MRI, PT DOES NOT HAVE CARD FOR STEND PLACEMENT. PT TO CALL TO HAVE HIM BRING CARDS IN TOMORROW. MRI SCREENING FORM COMPLETE. PLACED IN HARD CHART. CALL LIGHT IN REACH. BED IN LOWEST POSITION. WILL REPORT TO ONCOMING RN.
[2023-11-08 19:24] VITALS: BP 115/70
[2023-11-09 02:35] VITALS: BP 110/58
[2023-11-09 05:40] LABS: BASOPHILS ABSOLUTE AUTO 0.04 K/mm3 (0.00-0.23); BASOPHILS PERCENT AUTO 1 % (0-2); EOSINOPHILS ABSOLUTE AUTO 0.56 K/mm3 (0.00-0.68); EOSINOPHILS PERCENT AUTO 9 % (0-6); Hematocrit 30.1 % (33.0-51.0); Hemoglobin 10.4 g/dL (11.5-16.0); IMMATURE GRAN ABSOLUTE AUTO 0.29 K/mm3 (0.00-0.10); IMMATURE GRAN PERCENT AUTO 4 % (0-1); LYMPHOCYTES ABSOLUTE AUTO 0.76 K/mm3 (0.84-5.20); LYMPHOCYTES PERCENT AUTO 12 % (21-46); MONOCYTES ABSOLUTE AUTO 0.44 K/mm3 (0.16-1.47); MONOCYTES PERCENT AUTO 7 % (4-13); Mean Corpuscular HGB 29.4 pg (26.0-34.0); Mean Corpuscular HGB Conc 34.6 g/dL (31.5-36.5); Mean Corpuscular Volume 85 fL (80-100); Mean Platelet Volume 10.6 fL (9.1-12.4); NEUTROPHILS ABSOLUTE AUTO 4.48 K/mm3 (1.96-9.15); NEUTROPHILS PERCENT AUTO 68 % (41-73); Platelet Count 114 K/mm3 (150-400); RDW Coefficient Variation 14.3 % (11.7-14.2); RDW Standard Deviation 44.4 fL (35.1-46.3); Red Blood Cell Count 3.54 M/mm3 (3.80-5.20); White Blood Cell Count 6.57 K/mm3 (4.00-11.30)
[2023-11-09 06:09] LABS: Bun/Creatinine Ratio 29.3 (12.0-20.0); Calcium, Blood 8.2 mg/dL (8.5-10.1); Creatinine, Blood 0.55 mg/dL (0.40-1.00); Potassium, Blood 3.7 mmol/L (3.5-5.5)
--- NOTE | 2023-11-09 06:48 | NUR ---
Shift Summary Pt AOx4, calls appropriatly, 1 SBA to BR. She has been NPO since 0000 for potential pacemaker placement today. Her should be bringing in information about her stents for an MRI today. She slept well t/o the night, no c/o of pain. No fever all shift. On tele running sinus rythm, no events.
[2023-11-09 07:23] VITALS: BP 100/61
[2023-11-09 15:20] VITALS: BP 110/68
[2023-11-09 19:10] VITALS: BP 134/77
--- NOTE | 2023-11-09 19:20 | NUR ---
SHIFT SUMMARY: PATIENT DENIED PAIN OR DISCOMFORT THROUGHOUT THE SHIFT OTHER THAN SOME BACK PAIN WITH REPOSITION. PATIENT STEADY ON HER FEET. PATIENT DENIED DIZZINESS OR LIGHTHEADEDNESS AT REST OR WITH ACTIVITY. PATIENT REMAINED IN NSR PER TELEMETRY WITH NO ALARMS OR CARDIAC EVENTS. SBP IN THE LOW 100S. PATIENT ASYMPTOMATIC. PATIENT HAS AN ADEQUATE APPETITE. PATIENT DENIES NAUSEA. PATIENT HAVING BOWEL MOVEMENTS WITHOUT DIFFICULTY. PATIENT IS ALERT AND ORIENTED X4 WITH STML AT TIMES AND MILD [place]. PATIENT IS CALM AND COOPERATIVE WITH CARE. PATIENT PROVIDED STENT INFORMATION FROM 2016 AND STEEL TESTER WAS ABLE TO ACCESS THE STENT INFORMATION FROM 2016 PERFORMED AT [facility]. PATIENT HAD MRI PERFORMED THIS AFTERNOON. PATIENT HAD ECHO COMPLETED AT BEDSIDE.
[2023-11-10] VITALS (13 sets, daily range): BP systolic 79–149; BP diastolic 55–82
[2023-11-10 05:48] LABS: Hematocrit 31.5 % (33.0-51.0); Hemoglobin 10.7 g/dL (11.5-16.0); Mean Corpuscular HGB 29.5 pg (26.0-34.0); Mean Corpuscular Volume 87 fL (80-100); Mean Platelet Volume 9.9 fL (9.1-12.4); Platelet Count 134 K/mm3 (150-400); RDW Coefficient Variation 14.4 % (11.7-14.2); RDW Standard Deviation 45.5 fL (35.1-46.3); Red Blood Cell Count 3.63 M/mm3 (3.80-5.20)
[2023-11-10 06:16] LABS: Calcium, Blood 8.4 mg/dL (8.5-10.1); Creatinine, Blood 0.54 mg/dL (0.40-1.00); Potassium, Blood 3.5 mmol/L (3.5-5.5)
--- NOTE | 2023-11-10 06:24 | NUR ---
SHIFT SUMMARY NOC PT A/O X 4. PLEASANT AND COOPERATIVE WITH CARE. PT HAS BEEN NPO SINCE MIDNIGHT IN ANTICIPATION OF PACEMAKER PLACEMENT @ 0700 11/10/23. ON TELE RUNNING SINUS RHYTHM IN 80'S. PT WILL TRANSFER TO PCU FOR OBSERVATION AFTER PROCEDURE. PT IS CURRENTLY RESTING WITH BED IN LOWEST POSITION, AND CALL LIGHT WITHIN REACH.
[2023-11-10] MEDS ORDERED: Heparin Sodium 1000 Units/ML 10ML MDV ONE (06:46)
[2023-11-10] MEDS ORDERED: Vancomycin HCl 1000 MG ADDvantage ONE (06:46)
[2023-11-10] MEDS ORDERED: NS 1,000 ML IV ONE ×2 (06:47→06:55)
[2023-11-10] MEDS ORDERED: Vancomycin HCL 1,000 MG in NS 100 ML IV ONE (06:55)
[2023-11-10 07:16] LABS: BAND PERCENT MAN 2 % (0-8); BASOPHILS PERCENT MAN 0 % (0-2); EOSINOPHILS ABSOLUTE MAN 0.43 K/mm3 (0.00-0.68); EOSINOPHILS PERCENT MAN 7 % (0-6); LYMPHOCYTES % ATYPICAL MANUAL 1 % (0-0); LYMPHOCYTES PERCENT MAN 12 % (21-46); MONOCYTES ABSOLUTE MAN 0.37 K/mm3 (0.16-1.47); MONOCYTES PERCENT MAN 6 % (4-13); MYELOCYTE ABSOLUTE MAN 0.24 K/mm3 (0.00-0.00); MYELOCYTE PERCENT MAN 4 % (0-0); NEUTROPHILS ABSOLUTE MAN 4.34 K/mm3 (1.96-9.15); SEG NEUTROPHILS PERCENT MAN 68 % (41-73); TOTAL CELLS COUNTED 100
[2023-11-10] MEDS ORDERED: Midazolam HCl 1MG / ML 2ML Vial ONE (07:22)
[2023-11-10] MEDS ORDERED: Aspirin 81 MG Chew PO SCH (09:00)
[2023-11-10] MEDS ORDERED: Potassium Chloride 20 MEQ TabCR PO ONE (16:00)
[2023-11-10] MEDS ORDERED: Potassium Chloride 10 Meq Tablet SA PO ONE (16:45)
--- NOTE | 2023-11-10 17:20 | NUR ---
Pt. is awake in bed and welcomes my visit. Pt. is pleasant. Facilitate a life review and listen with interest and empathy. Rapport is estblished. Pt. displayed evidence of being engaged and aware. Prayed with Pt. Pt. 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
--- NOTE | 2023-11-10 18:24 | NUR ---
Shift summary. Pt to ICU from pacemaker placement at approximately 0930. Pt alert and oriented. Pacemaker site dressing in place, C/D/I. Pt c/o pain in lumbar spine and shoulder post-recent fall. Orders obtained for xray of both, pt has compression fracture in lumbar spine, see imaging. Up to chair this afternoon with minimal pain, pt slightly dizzy/lightheaded but ambulates easily independently. At approximately 1430 pt awoke from nap and reported feeling "funny". Exam revealed slight slurring in speech, 1mm pupil change in R eye compared to left and left arm drift. Dr. Pelayo called to bedside to assess pt. Pt symptoms resolved, no continued neuro changes this shift. One time neuro check at bedtime ordered, see nurse notify. No other acute events this shift, see chart for details. Will report off to nightshift RN.
--- NOTE | 2023-11-10 19:05 | NUR ---
ASSUMED CARE OF PT AT 1900 PT RESTING IN BED DURING BEDSIDE SHIFT REPORT. NO VISITORS AT THIS TIME. VITALS WNL AT THIS TIME. PT HAS NO COMPLAINTS AT THIS TIME. SEE FULL ASSESSMENT FOR FURTHER INFORMATION.
[2023-11-11 03:00] VITALS: BP 128/80
[2023-11-11 03:32] LABS: Hematocrit 30.2 % (33.0-51.0); Hemoglobin 10.3 g/dL (11.5-16.0); Mean Corpuscular HGB 29.7 pg (26.0-34.0); Mean Corpuscular HGB Conc 34.1 g/dL (31.5-36.5); Mean Corpuscular Volume 87 fL (80-100); Mean Platelet Volume 10.5 fL (9.1-12.4); Platelet Count 155 K/mm3 (150-400); RDW Coefficient Variation 14.4 % (11.7-14.2); RDW Standard Deviation 45.4 fL (35.1-46.3); Red Blood Cell Count 3.47 M/mm3 (3.80-5.20); White Blood Cell Count 7.64 K/mm3 (4.00-11.30)
[2023-11-11 03:55] LABS: Bun/Creatinine Ratio 27.9 (12.0-20.0); Calcium, Blood 8.3 mg/dL (8.5-10.1); Creatinine, Blood 0.54 mg/dL (0.40-1.00); Potassium, Blood 3.8 mmol/L (3.5-5.5)
[2023-11-11 04:10] LABS: BAND PERCENT MAN 3 % (0-8); BASOPHILS ABSOLUTE MAN 0.07 K/mm3 (0.00-0.23); BASOPHILS PERCENT MAN 1 % (0-2); EOSINOPHILS ABSOLUTE MAN 0.45 K/mm3 (0.00-0.68); EOSINOPHILS PERCENT MAN 6 % (0-6); LYMPHOCYTES ABSOLUTE MAN 1.45 K/mm3 (0.84-5.20); LYMPHOCYTES PERCENT MAN 19 % (21-46); METAMYELOCYTE ABSOLUTE MAN 0.07 K/mm3 (0.00-0.00); METAMYELOCYTE PERCENT MAN 1 % (0-0); MONOCYTES ABSOLUTE MAN 0.53 K/mm3 (0.16-1.47); MONOCYTES PERCENT MAN 7 % (4-13); MYELOCYTE ABSOLUTE MAN 0.38 K/mm3 (0.00-0.00); MYELOCYTE PERCENT MAN 5 % (0-0); NEUTROPHILS ABSOLUTE MAN 4.66 K/mm3 (1.96-9.15); SEG NEUTROPHILS PERCENT MAN 58 % (41-73); TOTAL CELLS COUNTED 100
[2023-11-11 04:51] LABS: ANTI-NUCLEAR AB ANA,IGG ELISA None Detected (None Detected)
[2023-11-11 06:00] VITALS: BP 129/78
--- NOTE | 2023-11-11 06:36 | NUR ---
SHIFT SUMMARY PT A/O X4. USES CALL LIGHT. C/O BACK AND SHOULDER PAIN. HEATING PAD PROVIDED FOR EXTRA COMFORT. PT HAD BM THIS AM, KADY ACKERMAN. USES BEDSIDE COMMODE. PT EAGER TO GET P AND MOVE AROUND. SLING IN PLACE OVER LEFT ARM FOR REMINDER TO NOT LIFT ARM ABOVE SHOULER. BANDAGE OVER INSERTED PACER C/D/I WIHTOUT ISSUE AT THIS TIME. VITALS WNL NO ACUTE CHANGES TO REPORT. CONTINUING TO MONITOR UNTIL REPORT GIVEN TO AM RN.
[2023-11-11 07:36] VITALS: BP 150/82
[2023-11-11] MEDS ORDERED: Acetaminophen325 M1 PO (10:50)
[2023-11-11] MEDS ORDERED: IBUP400 PO (10:51)
[2023-11-11 12:33] VITALS: BP 166/84
--- NOTE | 2023-11-11 13:00 | NUR ---
DISCHARGE PATIENT DISCHARGED AT 1227 AFTER XR CHEST 2V APPROVED BY DR. TOBIAS AND CLEARED BY PT. VSS AT DISCHARGE. ALL INSTRUCTIONS REVIEWED WITH PATIENT AND PROVIDED. 20G IV TO RT WRIST REMOVED. ALL QUESTIONS ANSWERED. NO ACUTE EVENTS THIS SHIFT. PATIENT ASSISTED TO CAR WITH .
--- NOTE | 2023-11-13 09:03 | NUR ---
11.13.2023 PT CALLED INTO ICU FROM HOME. PATIENT CONCERNED OF A "BUBBLE" WITH CLEAR FLUID IN IT NEXT TO THE DRESSING SITE ON HER CHEST BY HER NEW PACEMAKER THAT WAS PLACED A FEW DAYS PRIOR. SHE STATED TO THIS NURSE SHE IS NOT IN ANY PAIN, DOES NOT HAVE HEAT, SWELLING, REDNESS OR TENDERNESS AT THE SITE. SHE JUST HAS A "BUBBLE". SHE STATED SHE IS ALERGIC TO TAPE AND BLISTERS AND REDNESS HAS FORMED WHERE TAPE WAS APPLIED TO HER THE PAST. DR JOSHUA WAS CALLED AND FOLLOWED UP WITH ABOUT PT'S CONCERN. HE IS NOT CONCERNED AT THIS TIME AND WILL FOLLOW UP WITH PT ON THE UNLESS NEW S/S OR MORE CONCERNS ARISE. THEN PT IS ADVISED TO CALL BACK ON TUESDAY TO SHE IF SHE CAN BE SEEN SOONER THAN THE . CALLED PT BACK AT [phone] AND GAVE HER THE UPDATED INFORMATION. SHE WAS APPRECIATIVE AND HER CONERNS WERE ALLEVIATED AT THIS TIME.
== END 2023-11-11 13:05 | disposition home or self-care (01) | DRG 243 ==
LOC: ER 05:24 → MEDS 05:25 → ER 05:25 → MEDS 05:25 → ICUE 11-10 08:59 → MEDS 11-10 08:59 → ICUE 11-10 08:59
PROVIDERS: Emergency Medicine; Internal Medicine; Student in an Organized Health Care Education/Training Program; ADMIT Internal Medicine
PROC: 0JH606Z Insertion of Pacemaker, Dual Chamber into Chest Subcutaneous Tissue and Fascia, Open Approach (ICD-10-PCS; principal; 2023-11-10)
PROC: 02H63JZ Insertion of Pacemaker Lead into Right Atrium, Percutaneous Approach (ICD-10-PCS; 2023-11-10)
PROC: 02HK3JZ Insertion of Pacemaker Lead into Right Ventricle, Percutaneous Approach (ICD-10-PCS; 2023-11-10)
DX: I44.2 Atrioventricular block, complete (principal); E87.1 Hypo-osmolality and hyponatremia; S32.019A Unspecified fracture of first lumbar vertebra, initial encounter for closed fracture; I48.0 Paroxysmal atrial fibrillation; I10 Essential (primary) hypertension; I25.10 Atherosclerotic heart disease of native coronary artery without angina pectoris; D69.6 Thrombocytopenia, unspecified; E86.0 Dehydration; E87.6 Hypokalemia; F10.90 Alcohol use, unspecified, uncomplicated; M75.31 Calcific tendinitis of right shoulder; Z91.81 History of falling; W18.30XD Fall on same level, unspecified, subsequent encounter; K21.9 Gastro-esophageal reflux disease without esophagitis; E87.8 Other disorders of electrolyte and fluid balance, not elsewhere classified; R29.6 Repeated falls; E78.5 Hyperlipidemia, unspecified; Z95.5 Presence of coronary angioplasty implant and graft; Z88.0 Allergy status to penicillin; I73.00 Raynaud's syndrome without gangrene; E89.0 Postprocedural hypothyroidism; Z90.49 Acquired absence of other specified parts of digestive tract; Z98.890 Other specified postprocedural states; Z88.8 Allergy status to other drugs, medicaments and biological substances; Z88.5 Allergy status to narcotic agent; Z88.2 Allergy status to sulfonamides; Z79.82 Long term (current) use of aspirin; Z79.02 Long term (current) use of antithrombotics/antiplatelets; Z79.890 Hormone replacement therapy; Z79.899 Other long term (current) drug therapy; I25.2 Old myocardial infarction; Z87.891 Personal history of nicotine dependence; Z66 Do not resuscitate; Z11.52 Encounter for screening for COVID-19; D64.9 Anemia, unspecified
CPT/HCPCS: 0202U; 0241U; 33208; 36415; 70450; 70551; 71045; 71046; 72100; 73030; 80048; 80053; 81001; 82533; 83735; 83880; 83930; 83935; 84300; 84484; 85025; 86038; 87040; 87086; 93005; 93010; 96360; 96361; 96365; 96366; 96375; 96376; 97110; 97162; 97530; 99152; 99153; 99285-25; A9270; C1785; C1898; C8929; G0378; J0696; J1644; J1650; J2250; J2405; J2765; J3370; J3480; J7030; J7040; J7050; Q9957; Q9967

== ENCOUNTER 2024-06-20 03:50 | Emergency (ER) | payer OTHER ==
[~2024-06-20] VITALS: Ht 160 cm; Wt 63.5 kg
[~2024-06-20 03:50] MED LIST changes: +Acetaminophen325 M1 PO; +IBUP400 PO; +LISI5 PO
[2024-06-20 04:13] LABS: BASOPHILS ABSOLUTE AUTO 0.05 K/mm3 (0.00-0.23); BASOPHILS PERCENT AUTO 1 % (0-2); EOSINOPHILS ABSOLUTE AUTO 0.23 K/mm3 (0.00-0.68); EOSINOPHILS PERCENT AUTO 4 % (0-6); Hematocrit 34.3 % (33.0-51.0); Hemoglobin 11.4 g/dL (11.5-16.0); IMMATURE GRAN ABSOLUTE AUTO 0.07 K/mm3 (0.00-0.10); IMMATURE GRAN PERCENT AUTO 1 % (0-1); LYMPHOCYTES ABSOLUTE AUTO 1.44 K/mm3 (0.84-5.20); LYMPHOCYTES PERCENT AUTO 25 % (21-46); MONOCYTES ABSOLUTE AUTO 0.55 K/mm3 (0.16-1.47); MONOCYTES PERCENT AUTO 10 % (4-13); Mean Corpuscular HGB Conc 33.2 g/dL (31.5-36.5); Mean Corpuscular Volume 90 fL (80-100); Mean Platelet Volume 8.6 fL (9.1-12.4); NEUTROPHILS ABSOLUTE AUTO 3.36 K/mm3 (1.96-9.15); NEUTROPHILS PERCENT AUTO 59 % (41-73); Platelet Count 133 K/mm3 (150-400); RDW Coefficient Variation 14.2 % (11.7-14.2); RDW Standard Deviation 47.5 fL (35.1-46.3)
[2024-06-20 04:18] LABS: Source, Urine Clean Catch
[2024-06-20 04:20] LABS: Appearance, Urine Hazy (Clear); Bilirubin, Urine Neg (Neg); Blood, Urine 2+ (Neg); Glucose Qualitative, Urine Neg (Neg); Ketones, Urine Neg (Neg); Leukocyte Esterase, Urine 3+ (Neg); Nitrite, Urine Neg (Neg); Protein, Urine Neg (Neg); Specific Gravity, Urine 1.015 (1.003-1.022); Urobilinogen, Urine NORM (Normal)
[2024-06-20 04:22] LABS: Color, Urine Pale Yellow (P-Yellow)
[2024-06-20 04:27] LABS: White Blood Cells, Urine 50-100 /hpf (0-5)
[2024-06-20 04:28] LABS: Bacteria Mod /hpf; Squamous Epithelial Cells Mod /hpf (Few); Transitional Epithelial Cells Rare /hpf (0-Rare)
[2024-06-20 04:34] LABS: Albumin, Blood 3.4 g/dL (3.4-5.0); Albumin/Globulin Ratio 1.1 (0.8-1.8); Bilirubin, Total 0.3 mg/dL (0.1-1.0); Bun/Creatinine Ratio 26.6 (12.0-20.0); Calcium, Blood 8.8 mg/dL (8.5-10.1); Creatinine, Blood 0.6 mg/dL (0.40-1.00); Globulin, Blood 3.1 g/dL (2.2-4.0); Potassium, Blood 3.6 mmol/L (3.5-5.5); Total Protein, Blood 6.5 g/dL (6.4-8.2)
[2024-06-20] MEDS ORDERED: Cephalexin Monohydrate 500 MG Cap PO ONE (05:20)
[2024-06-20] MEDS ORDERED: NS 1,000 ML IV SCH (05:20)
[2024-06-20] MEDS ORDERED: CEPH500 PO (05:54)
[2024-06-20 06:15] VITALS: BP 188/76
== END 2024-06-20 06:15 | disposition home or self-care (01) ==
LOC: ER 03:50
PROVIDERS: Emergency Medicine
DX: N39.0 Urinary tract infection, site not specified (principal); R55 Syncope and collapse; Z87.891 Personal history of nicotine dependence; E03.9 Hypothyroidism, unspecified; I25.2 Old myocardial infarction; I10 Essential (primary) hypertension; Z79.82 Long term (current) use of aspirin; Z79.899 Other long term (current) drug therapy; Z88.6 Allergy status to analgesic agent; Z88.2 Allergy status to sulfonamides; Z88.1 Allergy status to other antibiotic agents; Z88.8 Allergy status to other drugs, medicaments and biological substances
CPT/HCPCS: 80053; 81001; 85025; 87086; 93005; 93010; 96360; 99284-25; A9270; J7030

== ENCOUNTER → 2024-08-19 | Outpatient (CLI) | payer OTHER ==
[~2024-08-19] MED LIST changes: +CEPH500 PO
== END | disposition home or self-care (01) ==
LOC: LAB 11:31 → LAB SHORT 11:31
DX: N39.0 Urinary tract infection, site not specified (principal)
CPT/HCPCS: 87077; 87086; 87186

== ENCOUNTER 2024-09-04 00:26 | Emergency (ER) | payer OTHER ==
[~2024-09-04] VITALS: Ht 160 cm; Wt 63.5 kg
[2024-09-04 01:24] LABS: BASOPHILS ABSOLUTE AUTO 0.06 K/mm3 (0.00-0.23); BASOPHILS PERCENT AUTO 1 % (0-2); EOSINOPHILS ABSOLUTE AUTO 0.27 K/mm3 (0.00-0.68); EOSINOPHILS PERCENT AUTO 3 % (0-6); Hematocrit 34.9 % (33.0-51.0); Hemoglobin 11.6 g/dL (11.5-16.0); IMMATURE GRAN ABSOLUTE AUTO 0.15 K/mm3 (0.00-0.10); IMMATURE GRAN PERCENT AUTO 2 % (0-1); LYMPHOCYTES ABSOLUTE AUTO 1.52 K/mm3 (0.84-5.20); LYMPHOCYTES PERCENT AUTO 19 % (21-46); MONOCYTES ABSOLUTE AUTO 0.71 K/mm3 (0.16-1.47); MONOCYTES PERCENT AUTO 9 % (4-13); Mean Corpuscular HGB Conc 33.2 g/dL (31.5-36.5); Mean Corpuscular Volume 90 fL (80-100); Mean Platelet Volume 9.2 fL (9.1-12.4); NEUTROPHILS ABSOLUTE AUTO 5.49 K/mm3 (1.96-9.15); NEUTROPHILS PERCENT AUTO 67 % (41-73); Platelet Count 159 K/mm3 (150-400); RDW Coefficient Variation 14.6 % (11.7-14.2); RDW Standard Deviation 47.9 fL (35.1-46.3); Red Blood Cell Count 3.87 M/mm3 (3.80-5.20)
[2024-09-04 01:52] LABS: Albumin, Blood 3.7 g/dL (3.4-5.0); Albumin/Globulin Ratio 1.1 (0.8-1.8); Bilirubin, Total 0.4 mg/dL (0.1-1.0); Bun/Creatinine Ratio 29.3 (12.0-20.0); Calcium, Blood 9.4 mg/dL (8.5-10.1); Creatinine, Blood 0.75 mg/dL (0.40-1.00); Globulin, Blood 3.4 g/dL (2.2-4.0); Total Protein, Blood 7.1 g/dL (6.4-8.2)
[2024-09-04 04:00] VITALS: BP 157/77
== END 2024-09-04 04:15 | disposition home or self-care (01) ==
LOC: ER 00:26
PROVIDERS: Student in an Organized Health Care Education/Training Program
DX: R00.2 Palpitations (principal); R07.89 Other chest pain; I25.10 Atherosclerotic heart disease of native coronary artery without angina pectoris; I48.0 Paroxysmal atrial fibrillation; I10 Essential (primary) hypertension; I25.2 Old myocardial infarction; E89.0 Postprocedural hypothyroidism; E78.5 Hyperlipidemia, unspecified; Z87.891 Personal history of nicotine dependence; Z88.6 Allergy status to analgesic agent; Z88.5 Allergy status to narcotic agent; Z88.0 Allergy status to penicillin; Z88.2 Allergy status to sulfonamides; Z88.8 Allergy status to other drugs, medicaments and biological substances; Z88.4 Allergy status to anesthetic agent; Z79.890 Hormone replacement therapy; Z79.82 Long term (current) use of aspirin; Z79.899 Other long term (current) drug therapy; Z59.89 Other problems related to housing and economic circumstances
CPT/HCPCS: 71046; 80053; 83690; 83880; 84484; 85025; 93005; 93010; 99285-25

== ENCOUNTER 2024-10-22 07:56 | Day surgery (SDC) | payer OTHER ==
[~2024-10-22] VITALS: Ht 162.6 cm; Wt 62.4 kg
[~2024-10-22 07:56] MED LIST changes: +NS 500 ML IV ONE; +propofoL 20 ML IV ONE
[2024-10-22] MEDS ORDERED: EUTHYROX75 MC1 (08:21)
[2024-10-22] MEDS ORDERED: ATENOLOL25 MG PO (08:21)
[2024-10-22] MEDS ORDERED: CALCIUM (08:22)
[2024-10-22] MEDS ORDERED: VITAMIN D (08:22)
[2024-10-22] MEDS ORDERED: FAMO10 (08:22)
[2024-10-22] MEDS ORDERED: VITAMIN B12500 MCG (08:23)
[2024-10-22] MEDS ORDERED: ATORVASTATIN CA20 MG (08:24)
[2024-10-22] MEDS ORDERED: Lisinopril2.5 MG PO (08:24)
[2024-10-22] MEDS ORDERED: NS 500 ML IV ONE (08:53)
--- NOTE | 2024-10-22 08:55 | NUR ---
[facility]24 [facility] TIME[facility] COMPLETED FOR PRE-OP INJECTION 0847: PRE-OP INJECTION BY DR TOMAS WITH 8 CC OF MIX OF (9CC 1% LIDOCAINE WITH EPINEPHRINE 1:100,000 WITH 1 CC OF SODIUM BICARB)
[2024-10-22] MEDS ORDERED: Ondansetron HCl 2 MG / ML 2ML Vial ONE (09:49)
[2024-10-22] MEDS ORDERED: Dexamethasone Sod Phos 10 MG/ML 1ML VIAL ONE (09:49)
--- NOTE | 2024-10-22 10:39 | NUR ---
10/22/24 1039 Lewis Gilliland PT STATED SDU B/P WITHIN 20% OF HER BASELINE AT THIS TIME OF DAY. SHE WAS INSTRUCTED TO MONITOR B/P AT HOME AND FOLLOW UP WITH PCP NEEDED. SLIGHT DISCOLORATION WAS NOTED IN OPERATIVE HAND COMPARED TO RIGHT HAND. CPILARY REFILL < 3 SECONDS. PT HAD SOME DISCOLORATION AT BASELINE, PER PRE-OP RN. AVA WRAP WAS LOOSENED, AND PT WAS INSTRUCTED TO FOLLOW UP WITH DR. TOMAS IF DISCOLORATION WORSENS OR DOES NOT IMPROVE.
[2024-10-22 10:40] VITALS: BP 142/65
== END 2024-10-22 10:25 | disposition home or self-care (01) ==
LOC: ORSCSDS 07:56
PROVIDERS: Orthopaedic Surgery
PROC: 01N54ZZ Release Median Nerve, Percutaneous Endoscopic Approach (ICD-10-PCS; principal; 2024-10-22 09:30)
DX: G56.03 Carpal tunnel syndrome, bilateral upper limbs (principal); M18.0 Bilateral primary osteoarthritis of first carpometacarpal joints; K21.9 Gastro-esophageal reflux disease without esophagitis; F41.9 Anxiety disorder, unspecified; F32.A Depression, unspecified; I10 Essential (primary) hypertension; G47.33 Obstructive sleep apnea (adult) (pediatric); E03.9 Hypothyroidism, unspecified; I25.2 Old myocardial infarction; Z87.891 Personal history of nicotine dependence; Z79.899 Other long term (current) drug therapy
CPT/HCPCS: J1100; J2405; J2704; J7040

== ENCOUNTER → 2024-12-18 | Outpatient (CLI) | payer OTHER ==
[~2024-12-18] MED LIST changes: +ATENOLOL25 MG PO; +ATORVASTATIN CA20 MG; +CALCIUM; +EUTHYROX75 MC1; +FAMO10; +Lisinopril2.5 MG PO; -NS 500 ML IV ONE; +VITAMIN B12500 MCG; +VITAMIN D; -propofoL 20 ML IV ONE
[2024-12-18 13:44] LABS: Source, Urine Clean Catch
[2024-12-18 14:23] LABS: Bacteria Not Seen /hpf; Red Blood Cells, Urine 0-2 /hpf (0-2); Squamous Epithelial Cells Few /hpf (Few); White Blood Cells, Urine 0-2 /hpf (0-5)
== END ==
LOC: LAB SHORT 13:42 → LAB 13:42
PROVIDERS: Physician Assistant Medical
DX: R35.0 Frequency of micturition (principal)
CPT/HCPCS: 81015

== ENCOUNTER → 2025-07-12 | Outpatient (CLI) | payer OTHER ==
[2025-07-12 15:41] LABS: Bacterial Vaginosis PCR Negative (NEGATIVE); Candida Group, PCR NOT DETECTED (NOT DETECT)
[2025-07-12 15:42] LABS: Candida glabrata-krusei, PCR DETECTED (NOT DETECT)
== END ==
LOC: LAB SHORT 13:10 → LAB 13:10
PROVIDERS: Obstetrics & Gynecology
DX: N76.0 Acute vaginitis (principal)
CPT/HCPCS: 81515